=== PATIENT | female | born 1990 | race Caucasian/White ===

== ENCOUNTER 2019-04-04 14:34 | Emergency (ER) | payer MEDICAID ==
[~2019-04-04] VITALS: Ht 167.6 cm; Wt 65.4 kg
[2019-04-04 14:35] VITALS: BP 133/81
== END 2019-04-04 15:15 | disposition home or self-care (01) ==
LOC: ED 15:09
DX: L73.9 Follicular disorder, unspecified (principal); F17.200 Nicotine dependence, unspecified, uncomplicated
CPT/HCPCS: 99283